=== PATIENT | female | born 1945 | race Caucasian/White ===

== ENCOUNTER 2017-08-09 23:05 | Emergency (ER) | payer MEDICARE, MEDICAID ==
--- NOTE | 2017-08-09 23:16 | EDM.PDOC ---
ED HPI GENERAL MEDICAL PROBLEM - General Chief Complaint: Respiratory Problem Stated Complaint: Choking episode, unresponsive Time Seen by Provider: 08/09/17 23:05 Source of Information: Reports: Patient, EMS Notes Reviewed, RN, RN Notes Reviewed History Limitations: Reports: Altered Mental Status - History of Present Illness INITIAL COMMENTS - FREE TEXT/NARRATIVE: [facility] was dispatched to [facility] for a person who was choking. EMS reports a family member had performed the Heimlich maneuver and the patient was breathing but unresponsive. Patient was laying on her side when EMS arrived. Patient's face was purple color. Patient had evidence of several very large emesis. According to family, the patient was eating steak when she started to choke. Patient's airway was patent. Patient very lethargic and slow to respond. She does follow commands but non-purposeful. Onset: Today, Sudden Onset Date: 08/09/17 - Related Data Allergies Allergy/AdvReac Type Severity Reaction Status Date / Time coconut Allergy Swelling Verified 08/09/17 23:53 Home Meds: Home Meds Cyclobenzaprine [Flexeril] 10 mg PO DAILY 08/09/17 [History] Eszopiclone 2 mg PO BEDTIME 08/09/17 [History] FLUoxetine HCl [Prozac] 60 mg PO DAILY 08/09/17 [History] Valsartan/Hydrochlorothiazide [Valsartan-Hctz 160-25 mg Tab] 1 tab PO DAILY [History] ED ROS GENERAL - Review of Systems Review Of Systems: Unable To Obtain (Due to patient condition) ED EXAM, GENERAL - Physical Exam Exam: See Below Exam Limited By: Intoxication General Appearance: Alert, Lethargic Eye Exam: Bilateral Eye: Normal Inspection, PERRL Head: Atraumatic, Normocephalic Neck: Supple Respiratory/Chest: No Respiratory Distress, Lungs Clear, Normal Breath Sounds Cardiovascular: Normal Peripheral Pulses, Regular Rate, Rhythm Peripheral Pulses: 2+: Radial (L), Radial (R) GI/Abdominal: Normal Bowel Sounds, Soft, Non-Tender Extremities: Normal Inspection Neurological: Slow to Respond Skin Exam: Warm, Dry, Intact Course - Vital Signs Last Recorded V/S: Last Vital Signs Temp 37.0 C 08/09/17 23:05 Pulse 80 08/09/17 23:34 Resp 16 08/09/17 23:34 BP 86/54 L 08/09/17 23:34 Pulse Ox 99 08/09/17 23:34 - Orders/Labs/Meds Orders: Active Orders 24 hr Category Date Time Status Chest 1V Frontal [CR] Stat Exams 08/09/17 23:17 Taken Head wo Cont [CT] Stat Exams 08/09/17 23:17 Taken Soft Tissue Neck wo Cont [CT] Stat Exams 08/09/17 23:16 Taken Sodium Chloride 0.9% [Saline Flush] Med 08/09/17 23:18 Active 10 ml FLUSH ASDIRECTED PRN Peripheral IV Insertion Adult [OM.PC] Routine Oth 08/09/17 23:18 Ordered Medication Orders Sodium Chloride (Saline Flush) 10 ml FLUSH ASDIRECTED PRN PRN Reason: Keep Vein Open Labs: Laboratory Tests 08/09/17 08/09/17 Range/Units 23:43 23:43 WBC 3.7 L (4.0-10.0) x10^3/uL RBC 3.51 L (4.00-5.50) x10^6/uL Hgb 12.2 (12.0-16.0) g/dL Hct 35.0 (33.0-47.0) % MCV 99.7 H (78.0-93.0) fL MCH 34.8 H (26.0-32.0) pg MCHC 34.9 (32.0-36.0) g/dL RDW Coeff of Beba 13.5 (10.0-15.0) % Plt Count 192 (130-400) x10^3/uL Add Manual Diff Yes Neutrophils % (Manual) 57 (50-80) % Band Neutrophils % 2 (0-6) % Lymphocytes % (Manual) 30 (25-50) % Reactive Lymphs % 2 H (0) % Monocytes % (Manual) 4 (2-11) % Basophils % (Manual) 1 (0-1) % Metamyelocytes % 4 H (0) % Platelet Estimate Adequate Macrocytosis 1+ slight H Sodium 137 (136-145) mmol/L Potassium 3.1 L (3.5-5.1) mmol/L Chloride 101 (98-107) mmol/L Carbon Dioxide 22 (21-32) mmol/L Anion Gap 17.1 (10-20) mmol/L BUN 23 H (7-18) mg/dL Creatinine 0.9 (0.55-1.02) mg/dL Est Cr Clr Drug Dosing 42.38 mL/min Estimated GFR (MDRD) > 60 Glucose 92 (74-106) mg/dL Calcium 7.9 L (8.5-10.1) mg/dL Ethyl Alcohol 253 H (0-3) mg/dL Meds: Medications Generic Name Dose Route Start Last Admin Trade Name Freq PRN Reason Stop Dose Admin Sodium Chloride 10 ml 08/09/17 23:18 Saline Flush FLUSH ASDIRECTED PRN Keep Vein Open Discontinued Medications Generic Name Dose Route Start Last Admin Trade Name Freq PRN Reason Stop Dose Admin Sodium Chloride 1,000 mls @ 999 mls/hr 08/09/17 23:18 08/09/17 23:25 Normal Saline IV 08/10/17 00:18 999 mls/hr ONETIME ONE Administration - Radiology Interpretation CT Results Date: 08/10/17 CT Results Time: :07 Departure - Departure Time of Disposition: :07 Disposition: Home, Self-Care 01 Condition: Good Clinical Impression: Choking due to food (regurgitated) Qualifiers: Encounter type: initial encounter Qualified Code(s): T17.320A - Food in larynx causing asphyxiation, initial encounter - Discharge Information Instructions: Choking, Adult Referrals: Sera Calle NP [Ordering Only Provider] - Forms: ED Department Discharge Additional Instructions: 1. Stay well hydrated and rest 2. Throat may be sore for the next few days, this is normal 3. Avoid chewy foods over the next couple of days 4. See your Primary as symptoms warrant 5. Call us with any questions or concerns ED Communication - ED Communication Date/Time Date: 08/10/17 Time Called: 01:06 - Discussed Case With (1) Discussed Case With (1): Radiologist (Dr. Stanley Beatty MD) - Conversation Summary Radiology Reading Discussed with Radiologist: Yes Summary Comment: CT of Head negative; CT of Neck negative; Chest normal - Problem List Review Problem List Initiated/Reviewed/Updated: Yes - My Orders Last 24 Hours: My Active Orders 08/09/17 23:16 Soft Tissue Neck wo Cont [CT] Stat 08/09/17 23:17 Chest 1V Frontal [CR] Stat Head wo Cont [CT] Stat 08/09/17 23:18 Sodium Chloride 0.9% [Saline Flush] 10 ml FLUSH ASDIRECTED PRN Peripheral IV Insertion Adult [OM.PC] Routine - Assessment/Plan Last 24 Hours: My Active Orders 08/09/17 23:16 Soft Tissue Neck wo Cont [CT] Stat 08/09/17 23:17 Chest 1V Frontal [CR] Stat Head wo Cont [CT] Stat 08/09/17 23:18 Sodium Chloride 0.9% [Saline Flush] 10 ml FLUSH ASDIRECTED PRN Peripheral IV Insertion Adult [OM.PC] Routine
[2017-08-09] MEDS ORDERED: Sodium Chloride 0.9% 1,000 ML IV ONE (23:18)
[2017-08-09] MEDS ORDERED: Sodium Chloride 0.9% 10 ML Syringe FLUSH PRN (23:18)
[2017-08-10 00:07] LABS: CHLORIDE,CL 101 mmol/L (98-107); SODIUM,NA 137 mmol/L (136-145)
== END 2017-08-10 01:20 | disposition home or self-care (01) ==
LOC: VM.ED 23:05
DX: T17.320A Food in larynx causing asphyxiation, initial encounter (principal); X58.XXXA Exposure to other specified factors, initial encounter; Z91.018 Allergy to other foods; Z79.899 Other long term (current) drug therapy
CPT/HCPCS: 36415; 70450; 70490; 71045; 80048; 85025; 96360; 99285; G0480; J7030